=== PATIENT | male | born 1930 | race Caucasian/White ===

== ENCOUNTER 2018-06-05 22:12 | Emergency (ER) | payer MEDICARE, BC ==
[~2018-06-05] VITALS: Ht 168.3 cm; Wt 72.7 kg
[~2018-06-05 22:12] MED LIST: CALC600T12 PO; CHOL400T32 PO; FLO0.4C PO; OMEP20CA10 PO; PRE1T PO; TEST200V10 IM
[2018-06-06] MEDS ORDERED: clindamycin 150mg capsule PO ONE (00:15)
[2018-06-06] MEDS ORDERED: amoxicillin 250mg capsule PO ONE (00:15)
[2018-06-06] MEDS ORDERED: ondansetron 4mg rapidly disintigrating tab PO ONE (00:20)
[2018-06-06] MEDS ORDERED: bacitracin 15gm ointment TP ONE (00:25)
[2018-06-06 00:45] VITALS: BP 171/78
[2018-06-06] MEDS ORDERED: AMOX500C2 PO (01:15)
[2018-06-06] MEDS ORDERED: CLIN150C8 PO (01:15)
== END 2018-06-06 01:27 | disposition home or self-care (01) ==
LOC: ER 22:13
DX: L08.9 Local infection of the skin and subcutaneous tissue, unspecified (principal); I10 Essential (primary) hypertension; Z88.2 Allergy status to sulfonamides; Z88.6 Allergy status to analgesic agent; Z88.8 Allergy status to other drugs, medicaments and biological substances; Z79.2 Long term (current) use of antibiotics; Z79.899 Other long term (current) drug therapy
CPT/HCPCS: 99284